=== PATIENT | female | born 1960 | race African-American/Black ===

== ENCOUNTER → 2018-11-25 | Outpatient (CLI) | payer OTHER ==
--- NOTE | 2018-11-25 16:22 | KCIC ---
EXAM: AP View of the chest DATE: 11/25/2018 12:00 AM INDICATION: POSITIVE TB TEST COMPARISON: No Prior FINDINGS: The heart is not enlarged. Mediastinal and hilar contours are normal. No focal parenchymal airspace opacity. No pleural effusion or pneumothorax. IMPRESSION: 1. No radiographic evidence for acute cardiopulmonary process. Electronically signed by: Erik Blanc MD (11/25/2018 4:19 PM) [facility]
== END | disposition home or self-care (01) ==
LOC: EDBD 12:48 → KCIC 12:48
PROVIDERS: ATTEND Family Medicine
DX: R76.11 Nonspecific reaction to tuberculin skin test without active tuberculosis (principal)
CPT/HCPCS: 71045